=== PATIENT | female | born 1960 | race Caucasian/White ===

== ENCOUNTER 2018-04-26 19:29 | Emergency (ER) | payer OTHER ==
[2018-04-26] MEDS ORDERED: 0.9 % SODIUM CHLORIDE 1,000 ML IV ONE (20:15)
[2018-04-26] MEDS ORDERED: ONDANSETRON HCL 4 MG TAB.RAPDIS PO ONE (20:16)
--- NOTE | 2018-04-26 20:19 | ED Physician Documentation ---
General Adult - HISTORIAN Historian: patient, spouse - HPI Stated Complaint: Syncopal episode Chief Complaint: General Adult Additional Information: Had "flu" 2 weeks ago with NVD. lasted 8 hours, with fever, and hasn't felt well since. Feels nauseated all day, but not severe. Able to eat. This evening, felt like her heart was beating fast for a few moments. Then it beat "hard." She felt hot and light headed. This has resolved before arrival in the ER. In good health generally w/o surgery or hospitalization. No [id number] meds. Takes [employer] products for cholesterol and menopause and a vitamin supplement. - ROS CONST: fever (not for 2 weeks.) GI/: denies: problems urinating - PAST HX Past History: none Allergies/Adverse Reactions: Allergies Allergy/AdvReac Type Severity Reaction Status Date / Time No Known Allergies Allergy Unverified 04/26/18 20:25 Home Medications: Ambulatory Orders Medication Instructions Recorded Multivitamin [Daily Multiple 1 each PO DAILY 04/26/18 Vitamin] Nitrofurantoin Monohyd/M-Cryst 100 mg PO Q12H #14 capsule 04/26/18 [Macrobid 100 mg Capsule] - SOCIAL HX Smoking History: quit greater than 1 year, cigarettes - FAMILY HX Family History: Yes (scleroderma, lupus, father and brother with VT at 52 y/o) ED Results Lab/Radiology - Orders Orders: ED Orders Category Date Time Status Orthostatics 1T Care 04/26/18 20:[address] IV Lock 1T Care 04/26/18 19:50 Active CBC/PLATELET/DIFF Routine Lab 04/26/18 20:04 Received CMP Routine Lab 04/26/18 20:04 Received URINALYSIS Routine Lab 04/26/18 Ordered 0.9 % Sodium Chloride [Normal Saline] 1,000 ml Med 04/26/18 20:15 Active IV Q1H Ondansetron HCl Rapdis [Zofran Odt] Med 04/26/18 20:16 Discontinued 4 mg PO NOW ONE EKG WITH COMPARISON Stat Ther 04/26/18 Ordered General Adult Physical Exam - PHYSICAL EXAM GENERAL APPEARANCE: mild distress EENT: eye inspection normal, ENT inspection normal NECK: normal inspection RESPIRATORY: breath sounds normal CVS: reg rate & rhythm, heart sounds normal, no murmur ABDOMEN: soft, normal bowel sounds, no distension BACK: normal inspection SKIN: warm/dry, normal color EXTREMITIES: normal range of motion (gait and stance), no evidence of injury NEURO: CN's nml as tested, motor nml, sensation nml, cognition normal Discharge Clincal Impression: Urinary tract infection after immobility Prescriptions: Nitrofurantoin Monohyd/M-Cryst [Macrobid 100 mg Capsule] 100 mg PO Q12H #14 capsule Referrals: Tre Riddle [Primary Care Provider] - 2 Days Additional Instructions: Drink plenty of water. Take all the antibiotics as prescribed until they are completely gone. Condition: Good Disposition: 01 HOME, SELF-CARE Decision to Admit: NO Decision Time: 21:30
[2018-04-26 20:27] LABS: eGFR (African) > 60; eGFR (Non-African) > 60
[2018-04-26] MEDS ORDERED: NITROFURANTOIN 100 MG CAPSULE PO ONE (21:41)
[2018-04-26 22:17] VITALS: BP 153/80
[2018-04-27 05:33] LABS: MEAN CORPUSCULAR VOLUME 96.6 fl (80.0-100.0)
[2018-04-27 05:34] LABS: BASOPHILS % 0.4 (0.0-1.5); EOSINOPHILS % 4.3 % (0.0-6.8); MONOCYTES % 5.8 % (0.0-11.0); NEUTROPHILS # 4.3 # k/uL (1.4-7.7)
[2018-04-27 06:16] LABS: APPEARANCE,URINE CLEAR (CLEAR); COLOR,URINE YELLOW (YELLOW)
[2018-04-27 06:17] LABS: OCCULT BLOOD,URINE TRACE-INTACT (NEGATIVE); PH URINE 5.5 (5.0 - 8.0); UROBILINOGEN URINE 0.2 Eu (0.2-1.0)
== END 2018-04-26 22:00 | disposition home or self-care (01) ==
LOC: ED 19:29
DX: N39.0 Urinary tract infection, site not specified (principal); R00.2 Palpitations
CPT/HCPCS: 80053; 81002; 85025; 87086; 96365; 99284; A9270; J7030; S1016